=== PATIENT | female | born 1990 | race Two or more races ===

== ENCOUNTER 2017-10-16 09:16 | Emergency (ER) | payer SELFPAY ==
--- NOTE | 2017-10-16 09:47 | EDM.PDOC ---
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 The patient 's mother does not speak Cymro at all.) - History of Present Illness INITIAL COMMENTS - FREE TEXT/NARRATIVE: The patient states that her last menstrual period began 09/09/2017 or 09/10/2017, a normal period for her. She is sexually active, and does not use any form of control. She states that a home test was positive 4 days ago, 10/12/2017. She is Ab1. She states that she developed pelvic cramps and significant vaginal bleeding, including passing clots, yesterday. Her symptoms stopped, although resumed again today, but with only minimal bleeding and much less severe cramping. The patient denies having dysuria or urinary frequency. The patient does not have a PCP, but her Crew Dispatcher is Dr. Ferguson. For reasons unclear, the patient did not contact Dr. Ferguson. Lower Pelvic Pain Score (Numeric/FACES): 3 - Related Data Allergies Allergy/AdvReac Type Severity Reaction Status Date / Time No Known Allergies Allergy Verified 10/16/17 09:28 Home Meds: Home Meds . [No Known Home Meds] 10/16/17 [History] Past Medical History - Past Surgical History GI Surgical History: Reports: Appendectomy, Cholecystectomy Social & Family History - Tobacco Use Smoking Status *Q: Never Smoker - Alcohol Use Alcohol Use History: Yes Alcohol Use Frequency: Rarely - Recreational Drug Use Recreational Drug Use: No - Living Situation & Occupation Living situation: Reports: , with Spouse, with Family (2 kids) Occupation: Unemployed ED ROS GENERAL - Review of Systems Review Of Systems: ROS reveals no pertinent complaints other than HPI. ED EXAM - Physical Exam Exam: See Below Exam Limited By: No Limitations General Appearance: Alert, WD/WN, No Apparent Distress Eye Exam: Bilateral Eye: Normal Inspection Ears: Normal External Exam, Hearing Grossly Normal Nose: Normal Inspection, No Blood Throat/Mouth: Normal Inspection, Normal Lips, Normal Voice, No Airway Compromise Head: Atraumatic, Normocephalic Neck: Normal Inspection, Full Range of Motion Respiratory/Chest: No Respiratory Distress, Lungs Clear, Normal Breath Sounds, No Accessory Muscle Use Cardiovascular: Normal Peripheral Pulses, Regular Rate, Rhythm, No Edema, No Gallop, No JVD, No Murmur, No Rub GI/Abdominal Exam: Normal Bowel Sounds, Soft, Non-Tender, No Organomegaly, No Distention, No Abnormal Bruit, No Mass, Other (Obese) Rectal Exam: Deferred Back Exam: Normal Inspection, Full Range of Motion. No: CVA Tenderness (L), CVA Tenderness (R) Extremities: Normal Inspection, Normal Range of Motion, No Pedal Edema, Normal Capillary Refill Neurological: Alert, Oriented, Normal Cognition, No Motor/Sensory Deficits Psychiatric: Normal Affect Skin Exam: Warm, Dry, Intact, Normal Color, No Rash Course - Vital Signs Last Recorded V/S: Last Vital Signs Temp 36.7 C 10/16/17 09:25 Pulse 87 10/16/17 09:25 Resp 18 10/16/17 09:25 BP 114/74 10/16/17 09:25 Pulse Ox 100 10/16/17 09:25 - Orders/Labs/Meds Labs: Laboratory Tests 10/16/17 Range/Units 09:52 HCG, Quant 48.0 mIU/mL - Re-Assessments/Exams Free Text/Narrative Re-Assessment/Exam: 10/16/17 09:43 By history, the patient has had a miscarriage. As she has minimal bleeding at this time, a D&C is not indicated. For today's purposes, I will order a quantitative hCG. By dates, the patient would be 5 weeks 2 or 3 days gestation today. If the quantitative level is within normal levels for dates, the patient can follow-up with Dr. Ferguson for repeat quantitative hCG. If it is exceedingly low, that will confirm that the patient has had a miscarriage. As the patient would be 5 weeks 2 or 3 days gestation by dates, she is far too early for heart tones. Case discussed with Dr. Ferguson at 09:41. She agrees with my approach of obtaining a quantitative hCG, and no other tests today. She would like the patient to follow-up this coming 10/21/2017. 10/16/17 10:32 The quantitative hCG has returned very low at 48. The hCG should be greater than 50 after 1 week of gestation, and at 5 weeks 2 or 3 days, should be between 1000 and 100,000. This confirms the patient has suffered a miscarriage. I will still have her follow-up with Dr. Ferguson this coming Friday, 2017. Departure - Departure Time of Disposition: 10:38 Disposition: Home, Self-Care 01 Condition: Good Clinical Impression: Spontaneous - Discharge Information Referrals: PCP,None [Primary Care Provider] - Marci Ferguson MD [Physician] - Forms: ED Department Discharge Additional Instructions: You were seen in the emergency room after developing pelvic cramps and vaginal bleeding yesterday, with a positive home test on 10/12/2017. Workup in the ER included a quantitative hCG (a measurement of your hormone), which returned low at 48. Given your gestational age, that hormone level should have been between 1000 and 100,000. This indicates that you have had a miscarriage. Your case was discussed with Dr. Ferguson. She would like you to follow-up in her office this coming 10/21/2017. You will need to make an appointment to see her. If any other problems, please do not hesitate to return to the ER.
[2017-10-16 10:57] VITALS: BP 115/70
== END 2017-10-16 10:50 | disposition home or self-care (01) ==
LOC: JD.ED 09:16
DX: O03.9 Complete or unspecified spontaneous abortion without complication (principal)
CPT/HCPCS: 36415; 84702; 99283; 99284

== ENCOUNTER 2019-04-27 19:28 | Emergency (ER) | payer OTHER ==
[2019-04-27 19:40] VITALS: BP 121/68; PULSE 121
--- NOTE | 2019-04-27 20:12 | EDM.PDOC ---
ED HPI GENERAL MEDICAL PROBLEM - General Chief Complaint: Respiratory Problem Stated Complaint: 28 WKS PG/SOB Time Seen by Provider: 04/27/19 19:37 Source of Information: Reports: Patient, Family (Mother) History Limitations: Reports: No Limitations - History of Present Illness INITIAL COMMENTS - FREE TEXT/NARRATIVE: Mrs. Carpio is a very pleasant 29-year-old woman with no chronic medical problems , who states that she is approximately 28 weeks gestation. On closer questioning , the patient is Ab2, at 29 weeks 1 day gestation as determined by an obstetric ultrasound on 03/29/2019. Her NEYMAR is 07/12/2019. Her LMP was 10/07/2018. She now presents to the ED stating that she developed shortness of breath and tachycardia around 19:00 this evening. Her shortness of breath resolved after around 30 minutes, and her tachycardia is improving, but is still present. She denies recent chest pain. She states that she has had a sore throat and a cough today. She feels tired. She denies recent fever, nausea, vomiting, constipation , diarrhea, or urinary symptoms. The patient denies having recent edema or swelling of either lower extremity. The patient states that she had similar symptoms sometime in March. She saw Dr. Taylor in lieu of her usual Staging Technician. An ECG was performed, and, according to the patient, was normal. The patient does not have a PCP. Her Staging Technician is Dr. Jonathan Katz. She did receive an influenza vaccine this season. 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: , Spontaneous (x 2) : 5 Para: 2 - Past Surgical History GI Surgical History: Reports: Appendectomy, Cholecystectomy (2010) Female Surgical History: Reports: Section (x 1) Social & Family History - Family History Family Medical History: Noncontributory - Tobacco Use Smoking Status *Q: Never Smoker - Caffeine Use Caffeine Use: Reports: Coffee, Soda - Alcohol Use Alcohol Use History: Yes Alcohol Use Frequency: Rarely - Recreational Drug Use Recreational Drug Use: No - Living Situation & Occupation Living situation: Reports: , with Spouse, with Family (2 kids) Occupation: Unemployed ED ROS GENERAL - Review of Systems Review Of Systems: Comprehensive ROS is negative, except as noted in HPI. ED EXAM, GENERAL - Physical Exam Exam: See Below Exam Limited By: No Limitations General Appearance: Alert, WD/WN, No Apparent Distress Eye Exam: Bilateral Eye: EOMI, Normal Inspection Ears: Normal External Exam, Normal Canal, Hearing Grossly Normal, Normal TMs Nose: Normal Inspection, Normal Mucosa, No Blood Throat/Mouth: Normal Inspection, Normal Lips, Normal Teeth, Normal Gums, Normal Oropharynx, Normal Voice, No Airway Compromise Head: Atraumatic, Normocephalic Neck: Normal Inspection, Supple, Non-Tender, Full Range of Motion. No: Lymphadenopathy (L), Lymphadenopathy (R) Respiratory/Chest: No Respiratory Distress, Lungs Clear, Normal Breath Sounds, No Accessory Muscle Use. No: Decreased Breath Sounds, Crackles, Rhonchi, Wheezing, Stridor, Prolonged Expiration Cardiovascular: Normal Peripheral Pulses, No Edema, No Gallop, No JVD, No Murmur , No Rub, Tachycardia (regular) Peripheral Pulses: 4+: Radial (L), Radial (R) GI/Abdominal: Normal Bowel Sounds, Soft, Non-Tender, No Organomegaly, No Distention, No Abnormal Bruit, Other (Gravid uterus consistent with dates) (Female) Exam: Deferred Rectal (Female) Exam: Deferred Back Exam: Normal Inspection, Full Range of Motion, NT Extremities: Normal Inspection, Normal Range of Motion, No Pedal Edema, Normal Capillary Refill Neurological: Alert, Oriented, Normal Cognition, No Motor/Sensory Deficits Psychiatric: Normal Affect Skin Exam: Warm, Dry, Intact, Normal Color, No Rash Course - Vital Signs Last Recorded V/S: Last Vital Signs Temp 37.1 C 04/27/19 19:36 Pulse 121 H 04/27/19 19:36 Resp 18 04/27/19 19:36 BP 121/68 04/27/19 19:36 Pulse Ox 97 04/27/19 19:36 - Orders/Labs/Meds Orders: Active Orders 24 hr Category Date Time Status Ang Chest [CT] Stat Exams 04/27/19 21:28 Taken Chest 2V [CR] Stat Exams 04/27/19 20:12 Taken Lung Vent Perfusion [NM] Stat Exams 04/27/19 21:12 Stop Req CULTURE STREP A CONFIRMATION [RM] Stat Lab 04/27/19 20:16 Results STREP SCRN A RAPID W CULT CONF [RM] Stat Lab 04/27/19 20:16 Results Sodium Chloride 0.9% [Normal Saline] 1,000 ml Med 04/27/19 22:00 Active IV ASDIRECTED Medication Orders Sodium Chloride (Normal Saline) 1,000 mls @ 150 mls/hr IV ASDIRECTED ALEXANDRA Last Admin: 04/27/19 22:17 Dose: 150 mls/hr Meds: Medications Generic Name Dose Route Start Last Admin Trade Name Freq PRN Reason Stop Dose Admin Sodium Chloride 1,000 mls @ 150 mls/hr 04/27/19 22:00 04/27/19 22:17 Normal Saline IV 150 mls/hr ASDIRECTED ALEXANDRA Administration - Re-Assessments/Exams Free Text/Narrative Re-Assessment/Exam: 04/27/19 20:07 With a history of shortness of breath and tachycardia, a diagnosis of pulmonary embolus has to be entertained. The risk of a DVT and pulmonary embolus increases with , as does, unfortunately, the D-dimer. Current guidelines, therefore do not recommend checking a D-dimer, as it will invariably be elevated. In the absence of lower extremity edema, such as in this case, current guidelines recommend checking a chest x-ray, and if normal, obtaining a V/Q scan. If the x-ray is abnormal, a CT angiogram of the chest is indicated. Since the patient is also complaining of a sore throat, I will swab for a rapid strep test. 04/27/19 20:19 The heart tones are 150 bpm. 04/27/19 20:53 The rapid strep test has returned negative. Notified by Reny PAN that the patient wants to "think about it" with respect to the chest x-ray. I explained to Reny, as I had with the patient, that the purpose of the chest x-ray is to determine if the diagnostic test to evaluate for a pulmonary embolus should be a V/Q scan or a CT angiogram. If the patient does not want a chest x-ray, then I cannot determine which is the best diagnostic test for her. If the patient doesn't want either diagnostic test, then she does not need to undergo the chest x-ray. 04/27/19 21:15 2-view chest radiograph reviewed. Poor inspiratory effort. The cardiac silhouette is within normal limits. No pulmonary vascular congestion. No pleural effusions. No focal infiltrate. No pneumothorax. Formal read per the Radiologist pending. As above, I have ordered a V/Q scan. 04/27/19 21:21 Notified that a V/Q scan is not available at this facility at night. I have no choice but to offer the patient a CT angiogram of her chest to evaluate for a PE. 04/27/19 23:21 CT angiogram of the chest is read by [facility] as "No acute pulmonary embolus." The patient can be safely discharged home. Departure - Departure Time of Disposition: 23:23 Disposition: Home, Self-Care 01 Condition: Good Clinical Impression: Tachycardia, Dyspnea - Discharge Information *PRESCRIPTION DRUG MONITORING PROGRAM REVIEWED*: Not Applicable *COPY OF PRESCRIPTION DRUG MONITORING REPORT IN PATIENT JAM: Not Applicable Referrals: Jonathan Katz MD [Primary Care Provider] - Forms: ED Department Discharge Additional Instructions: You were seen in the emergency room after developing shortness of breath and an elevated heart rate, along with a sore throat and cough. Workup in the ER included a rapid strep test, a chest x-ray, and a CT angiogram of your chest. Your entire workup was unremarkable. You do not have strep throat. You do not have pneumonia. You do not have a pulmonary embolus (blood clot in your lungs). You should stay adequately hydrated over the next week. You may continue to take your vitamin and iron. Follow-up with your Staging Technician, Dr. Jonathan Katz, at your next scheduled appointment. If any other problems, please do not hesitate to return to the ER. Sepsis Event Note - Evaluation Sepsis Screening Result: No Definite Risk - Focused Exam Vital Signs: Vital Signs Temp Pulse Resp BP Pulse Ox 04/27/19 19:36 37.1 C 121 H 18 121/68 97 Date Exam was Performed: 04/27/19 Time Exam was Performed: 23:21 - My Orders Last 24 Hours: My Active Orders 04/27/19 20:12 Chest 2V [CR] Stat 04/27/19 20:16 CULTURE STREP A CONFIRMATION [RM] Stat STREP SCRN A RAPID W CULT CONF [RM] Stat 12/17/19 21:12 Lung Vent Perfusion [NM] Stat 04/27/19 21:28 Ang Chest [CT] Stat 04/27/19 22:00 Sodium Chloride 0.9% [Normal Saline] 1,000 ml IV ASDIRECTED - Assessment/Plan Last 24 Hours: My Active Orders 04/27/19 20:12 Chest 2V [CR] Stat 04/27/19 20:16 CULTURE STREP A CONFIRMATION [RM] Stat STREP SCRN A RAPID W CULT CONF [RM] Stat 04/27/19 21:12 Lung Vent Perfusion [NM] Stat 04/27/19 21:28 Ang Chest [CT] Stat 04/27/19 22:00 Sodium Chloride 0.9% [Normal Saline] 1,000 ml IV ASDIRECTED
[2019-04-27] MEDS ORDERED: Sodium Chloride 0.9% 1,000 ML IV SCH (22:00)
--- NOTE | 2019-04-28 06:55 | CT ---
CT chest Technique: Multiple axial sections through the chest were obtained. Study performed as a pulmonary angiogram protocol. Intravenous contrast was therefore utilized. Comparison: No previous chest CT, previous chest x-ray performed earlier on the same day (8:59 PM). Findings: Pulmonary arteries are not optimally opacified. No discrete filling defects within the main or segmental branches are seen. Smaller subsegmental pulmonary emboli could be missed. Aorta shows no aneurysm. No mediastinal adenopathy is seen. No axillary adenopathy is noted. No pericardial thickening is seen. Visualized upper abdominal structures show no discrete abnormality. Lungs show no acute parenchymal change. No pleural effusions are seen. No acute bony abnormality is identified. Impression: 1. Less than optimal opacified pulmonary arteries. No evidence of pulmonary embolism within the main or segmental branches. Smaller subsegmental pulmonary emboli could be missed. 2. No additional abnormality is identified on CT study of the chest. Diagnostic code #2 This report was dictated in [place] Standard Time I agree with preliminary report from [facility], finalized on 04/28/19, 12:19 AM Central Time
--- NOTE | 2019-04-28 06:59 | CR ---
Chest: Two views of the chest were obtained. Comparison: No prior chest x-ray. Heart size and mediastinum are normal. Lungs are clear. Bony structures are grossly intact. Impression: 1. Nothing acute is seen on two-view chest x-ray. Diagnostic code #1 This report was dictated in [place] Standard Time
== END 2019-04-27 23:39 | disposition home or self-care (01) ==
LOC: JD.ED 19:28
DX: O99.89 Other specified diseases and conditions complicating pregnancy, childbirth and the puerperium (principal); R00.0 Tachycardia, unspecified; R06.02 Shortness of breath; Z3A.28 28 weeks gestation of pregnancy
CPT/HCPCS: 71046; 71275; 87081; 87430; 96360; 99285; J7030; 99283

== ENCOUNTER 2019-07-08 08:38 | Inpatient (IN) | payer SELFPAY ==
[2019-07-08] MEDS ORDERED: Sodium Chloride 0.9% 10 ML Syringe FLUSH PRN (09:27)
[2019-07-08] MEDS ORDERED: Ondansetron 4 MG/2 ML SDV IVPUSH PRN ×2 (09:27→12:17)
[2019-07-08] MEDS ORDERED: Oxytocin/Lactated Ringers 10 UNIT/1,000 ML BAG IV SCH ×2 (09:30→14:30)
[2019-07-08] MEDS ORDERED: Lactated Ringers 1,000 ML IV SCH (09:30)
[2019-07-08] MEDS ORDERED: ePHEDrine 50 MG/ML SDV IVPUSH PRN (12:17)
[2019-07-08] MEDS ORDERED: fentaNYL 100 MCG/2 ML SDV EPIDUR PRN (12:17)
--- NOTE | 2019-07-08 12:19 | PCM.PREANE ---
Preanesthetic Assessment - Anesthesia/Transfusion/Family Hx Anesthesia History: Prior Anesthesia Without Reaction Family History of Anesthesia Reaction: No Transfusion History: No Prior Transfusion(s) Intubation History: Unknown - Review of Systems General: No Symptoms Pulmonary: No Symptoms Cardiovascular: Palpitations (with ) Gastrointestinal: No Symptoms (GERD with ) Neurological: No Symptoms Other: Reports: None - Physical Assessment NPO Status Date: 07/08/19 NPO Status Time: 11:00 Vital Signs: Last Vital Signs Temp 36.7 C 07/08/19 08:47 Pulse 95 07/08/19 08:47 Resp 16 07/08/19 08:47 BP 114/83 07/08/19 08:47 Pulse Ox 98 07/08/19 08:47 Height: 1.68 m Weight: 95.708 kg ASA Class: 2 Mental Status: Alert & Oriented x3 Airway Class: Mallampati = 2 Dentition: Reports: Normal Dentition, Caries Thyro-Mental Finger Breadths: 3 Mouth Opening Finger Breadths: 3 ROM/Head Extension: Full Lungs: Clear to Auscultation, Normal Respiratory Effort Cardiovascular: Regular Rate, Regular Rhythm, No Murmurs - Lab Values: Laboratory Last Values WBC 9.63 K/mm3 (3.98-10.04) 07/08/19 09:53 RBC 4.51 M/mm3 (3.98-5.22) 07/08/19 09:53 Hgb 12.8 gm/dl (11.2-15.7) 07/08/19 09:53 Hct 38.5 % (34.1-44.9) 07/08/19 09:53 MCV 85.4 fl (79.4-94.8) D 07/08/19 09:53 MCH 28.4 pg (25.6-32.2) 07/08/19 09:53 MCHC 33.2 g/dl (32.2-35.5) 07/08/19 09:53 RDW Std Deviation 44.7 fL (36.4-46.3) 07/08/19 09:53 Plt Count 336 K/mm3 (182-369) 07/08/19 09:53 MPV 9.5 fl (9.4-12.3) 07/08/19 09:53 Neut % (Auto) 69.8 % (34.0-71.1) 07/08/19 09:53 Lymph % (Auto) 23.8 % (19.3-51.7) 07/08/19 09:53 [place] % (Auto) 5.0 % (4.7-12.5) 07/08/19 09:53 Eos % (Auto) 0.6 (0.7-5.8) L 07/08/19 09:53 Baso % (Auto) 0.2 % (0.1-1.2) 07/08/19 09:53 Neut # (Auto) 6.72 K/mm3 (1.56-6.13) H 07/08/19 09:53 Lymph # (Auto) 2.29 K/mm3 (1.18-3.74) 07/08/19 09:53 [place] # (Auto) 0.48 K/mm3 (0.24-0.36) H 07/08/19 09:53 Eos # (Auto) 0.06 K/mm3 (0.04-0.36) 07/08/19 09:53 Baso # (Auto) 0.02 K/mm3 (0.01-0.08) 07/08/19 09:53 Above labs reviewed and noted and within acceptable ranges to proceed with epidural if desired. 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: , 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 (x 2) - Past Surgical History GI Surgical History: Reports: Appendectomy, Cholecystectomy (2009) Female Surgical History: Reports: Section (x 1) - HOME MEDS Home Medications: Home Meds No122/Iron/Folic Acid [ Multi Tablet] 1 tab PO DAILY 04/27/19 [ History] - CURRENT (IN HOUSE) MEDS Current Meds: Current Medications Lactated Ringer's (Ringers, Lactated) 1,000 mls @ 100 mls/hr IV ASDIRECTED ALEXANDRA Oxytocin/Lactated Ringer's (Pitocin In Lr 10 Units/1,000 Ml) 10 unit in 1,000 mls @ 500 mls/hr IV .CONTINUOUS ALEXADNRA Ondansetron HCl (Zofran) 4 mg IVPUSH Q4H PRN PRN Reason: Nausea/Vomiting Sodium Chloride (Saline Flush) 10 ml FLUSH ASDIRECTED PRN PRN Reason: Keep Vein Open
[2019-07-08] MEDS ORDERED: Phenylephrine 1 MG in Sodium Chloride 0.9% 10 ML IV SCH (12:30)
[2019-07-08] MEDS ORDERED: Bupivacaine/fentaNYL/NS 100 ML Bag EPIDUR SCH (12:30)
--- NOTE | 2019-07-08 12:49 | PCM.LDHP ---
L&D History of Present Illness - General Date of Service: 07/08/19 Admit Problem/Dx: Patient Status Order with Admit Dx/Problem 07/08/19 09:28 Patient Status [ADT] Routine Admission Diagnosis/Problem Admission Diagnosis/Problem 07/08/19 12:40 Debora is a 29-year-old 4 para 2013 white female admitted in active labor on 07/08/2019 at 39-1/7 weeks gestational age with an NEYMAR of 07/14/2019. Source of Information: Patient History Limitations: Reports: No Limitations - History of Present Illness Introduction:: Debora is a 29-year-old 4 para 2013 white female admitted in active labor on 07/08/2019 at 39-1/7 weeks gestational age with an NEYMAR of 07/14/2019.She began in labor early on the a.m. of 07/08/2019. She is progressed from cervical dilation of 2+ centimeters 70% effaced with -3 station on 07/07/2019 to 4 cm dilation at the time of admission. He has been active. heart tones are reassuring. 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 Her first medical visit was on 12/21/2018 at which time ultrasound correlated with dates. She's been seen on a regular basis throughout the . Her menarche was at age 10. Cycles every 32 days. She is sexually active without any control to time conception. Her past obstetric history includes the followin. Female infant born 09/04/2010 at 38 weeks gestational age after 6 hours of labor. 7 lbs. 10 oz.-Primary section done for failure to progress. This was done in [place]. Baby's name is Hanna. 2. Spontaneous first trimester occurring 12/21/2013 3. Male born 08/15/2015 at 38 weeks gestational age after 12 hours of labor. Earth weight 7 lbs. 8 oz. This was a vaginal after section. Epidural was used for labor analgesia. Son's name is Nitesh. course was unremarkable. She was seen on a regular basis throughout the care. She had a weight gain from 205-209 pounds. Fundal height growth was appropriate to just a bit ahead of schedule. Vital signs remained stable throughout the course. Patient's immunizations including influenza vaccine on 02/18/2019. She received her T dap immunization on 04/22/2019. She is rubella immune. Laboratory testing as follows: Blood is O+ with negative and by screen. First hemoglobin is 14.1 g/dL. Platelets were 351,000. She is rubella immune. RPR is nonreactive. Hepatitis B surface antigen and HIV assays were both negative. A medium gonorrhea tests were both negative. TSH done on 2019 was 2.356 mU/L. Second trimester laboratory testing showed hemoglobin 11.5 g/dL at which time patient was started on ferrous sulfate 325 mg by mouth daily. Her platelets at that time were 369,000. One-hour glucose tolerance test was mildly increased at 134. Her three-hour glucose showed a fasting blood sugar of 86. A 1 hour glucose of 194. 2R glucose of 139. A 3 hour glucose of 77. This was consistent with not being a gestational diabetic. Group B strep screen done on 06/14/19 was negative. Allergies: None Medications: 1. vitamins 1 daily 2. Ferrous sulfate 325 mg by mouth daily. Past medical history: 1. Miscarriage 12/21/2013spontaneousfirst trimester 2. Vaginal after section 08/15/2014 Surgical history: 1. 1 for failure to progress 09/04/2009. 2. Appendectomy 2002 3. Cholecystectomy 2009. Family history: Mother is alive and well as is her father. 2 brothers are alive and well as is one sister. Maternal grandmother is alive and well. Maternal grandfather is alive but has suffered from a stroke. Paternal grandmother is alive and well as is her paternal grandfather. There is no family history of cancer, bleeding, blood clotting disorders, anesthesia or related asthma issues. Twins are present history father's side. Social history: Patient is . She is a juun-hp-qavo mom.. is [place]. She does not use any significant most alcohol, drugs or tobacco. Review of systems: In general patient has no complaints other than contractions consistent with early labor.. Skin: Negative Lungs: No infectious symptoms or shortness of breath Cardiovascular: No chest pain or exercise intolerance Breasts: Changes associated with . GI: Negative : Body habitus changes consistent with . Musculoskeletal: Negative Neurological: Negative In general the patient is well-developed, well-nourished, pleasant female of stated age in no acute distress. Vital signs on last evaluation clinic 07/07/2019 showed a blood pressure of 110/ 62 and a heart rate of 133. Her weight was 209.4 cm with pre- weight at 205 pounds. Height is 5 feet 6 inches. Pre-but regnancy body mass index is 36.3. Skin is warm dry without lesions. HEENT, neck and back within normal limits. Lungs are clear with good breath sounds in all lung mae. Cardiovascular exam shows regular and rhythm without murmurs. Abdomen is flat, soft, nontender without masses or organomegaly. Positive bowel sounds are noted. No inguinal lymphadenopathy or hernias are noted. Genital per speculum bimanual shows normal external genitalia, BUS, pubic hair pattern. There is normal support, secretions and estrogenization vagina. Uterus is small, anterior, freely mobile, without parametrial induration or adnexal abnormalities. Extremities and neurological exam are grossly within normal limits. - Related Data Allergies/Adverse Reactions: Allergies Allergy/AdvReac Type Severity Reaction Status Date / Time No Known Allergies Allergy Verified 04/27/19 19:40 Home Medications: Home Meds No122/Iron/Folic Acid [ Multi Tablet] 1 tab PO DAILY 04/27/19 [ History] Past Medical History - Past Health History Medical/Surgical History: Denies Medical/Surgical History LEGAL BILLING COORDINATOR History: Reports: , Spontaneous (x 2) - Past Surgical History GI Surgical History: Reports: Appendectomy, Cholecystectomy (2010) Female Surgical History: Reports: Section (x 1) Social & Family History - Family History Family Medical History: Noncontributory - Caffeine Use Caffeine Use: Reports: Coffee, Soda - Living Situation & Occupation Living situation: Reports: , with Spouse, with Family (2 kids) Occupation: Unemployed H&P Review of Systems - Review of Systems: Review Of Systems: See Below L&D Exam - Exam Exam: See Below - Vital Signs Vital Signs: Last Vital Signs Temp 36.7 C 07/08/19 08:47 Pulse 95 07/08/19 08:47 Resp 16 07/08/19 08:47 BP 114/83 07/08/19 08:47 Pulse Ox 98 07/08/19 08:47 Weight: 95.708 kg - Patient Data Lab Results Last 24 hrs: Laboratory Results - last 24 hr 07/08/19 Range/Units 09:53 WBC 9.63 (3.98-10.04) K/mm3 RBC 4.51 (3.98-5.22) M/mm3 Hgb 12.8 (11.2-15.7) gm/dl Hct 38.5 (34.1-44.9) % MCV 85.4 D (79.4-94.8) fl MCH 28.4 (25.6-32.2) pg MCHC 33.2 (32.2-35.5) g/dl RDW Std Deviation 44.7 (36.4-46.3) fL Plt Count 336 (182-369) K/mm3 MPV 9.5 (9.4-12.3) fl Neut % (Auto) 69.8 (34.0-71.1) % Lymph % (Auto) 23.8 (19.3-51.7) % Nobles % (Auto) 5.0 (4.7-12.5) % Eos % (Auto) 0.6 L (0.7-5.8) Baso % (Auto) 0.2 (0.1-1.2) % Neut # (Auto) 6.72 H (1.56-6.13) K/mm3 Lymph # (Auto) 2.29 (1.18-3.74) K/mm3 Nobles # (Auto) 0.48 H (0.24-0.36) K/mm3 Eos # (Auto) 0.06 (0.04-0.36) K/mm3 Baso # (Auto) 0.02 (0.01-0.08) K/mm3 Result Diagrams: 07/08/19 09:53 Problem List Initiated/Reviewed/Updated: Yes Orders Last 24hrs: Active Orders 24 hr Category Date Time Status Patient Status [ADT] Routine ADT 07/08/19 09:28 Active Activity as Tolerated [RC] PFP Care 07/08/19 09:27 Active Communication Order [RC] ASDIRECTED Care 07/08/19 09:27 Active Heart Tones [RC] ASDIRECTED Care 07/08/19 09:28 Active Non Stress Test [RC] PER UNIT ROUTINE Care 07/08/19 08:47 Active Notify Provider [RC] ASDIRECTED Care 07/08/19 12:17 Active Notify Provider [RC] PFP Care 07/08/19 09:27 Active Notify Provider [RC] PRN Care 07/08/19 09:27 Active Oxygen Therapy [RC] ASDIRECTED Care 07/08/19 12:17 Active Peripheral IV Care [RC] . DIRECTED Care 07/08/19 09:28 Active Pulse Oximetry [RC] ASDIRECTED Care 07/08/19 12:17 Active Vital Signs [RC] PER UNIT ROUTINE Care 07/08/19 08:47 Active Vital Signs [RC] PER UNIT ROUTINE Care 07/08/19 09:27 Active RAPID PLASMA REAGIN,RPR [CHEM] Routine Lab 07/08/19 09:53 Received Bupivacaine/fentaNYL/NS [fentaNYL/Bupivacaine/NS 2 MCG- Med 07/08/19 12:30 Active 0.125% 100 ML] 100 ml EPIDUR ASDIRECTED Lactated Ringers [Ringers, Lactated] 1,000 ml Med 07/08/19 09:30 Active IV ASDIRECTED Ondansetron [Zofran] Med 07/08/19 12:17 Active 4 mg IVPUSH ONETIME PRN Ondansetron [Zofran] Med 07/08/19 09:27 Active 4 mg IVPUSH Q4H PRN Oxytocin/Lactated Ringers [Pitocin in LR 10 Units/1,000 Med 07/08/19 09:30 Active ML] 10 unit in 1,000 ml IV .CONTINUOUS Phenylephrine [Hosea-Synephrine] 1 mg Med 07/08/19 12:30 Active Sodium Chloride 0.9% [Normal Saline] 10 ml IV TITRATE Sodium Chloride 0.9% [Saline Flush] Med 07/08/19 09:27 Active 10 ml FLUSH ASDIRECTED PRN ePHEDrine [ePHEDrine sulfate] Med 07/08/19 12:17 Active 5 mg IVPUSH ASDIRECTED PRN fentaNYL [Sublimaze] Med 07/08/19 12:17 Active 100 mcg EPIDUR Q3H PRN Electronic Heart Tones Ext w TOCO [WOMSER] Oth 07/08/19 09:27 Ordered Routine Electronic Heart Tones Internal [WOMSER] Per Unit Oth 07/08/19 09:27 Ordered Routine Peripheral IV Insertion Adult [OM.PC] Routine Oth 07/08/19 09:27 Ordered Resuscitation Status Routine Resus Stat 07/08/19 08:47 Ordered Medication Orders Ephedrine Sulfate (Ephedrine Sulfate) 5 mg IVPUSH ASDIRECTED PRN PRN Reason: Hypotension Fentanyl (Sublimaze) 100 mcg EPIDUR Q3H PRN PRN Reason: Pain Fentanyl/Bupivacaine HCl (Fentanyl/Bupivacaine/Ns 2 Mcg-0.125% 100 Ml) 100 ml EPIDUR ASDIRECTED ALEXANDRA Lactated Ringer's (Ringers, Lactated) 1,000 mls @ 100 mls/hr IV ASDIRECTED ALEXANDRA Oxytocin/Lactated Ringer's (Pitocin In Lr 10 Units/1,000 Ml) 10 unit in 1,000 mls @ 500 mls/hr IV .CONTINUOUS ALEXANDRA Phenylephrine HCl 1 mg/ Sodium (Chloride) 10.1 mls @ 1 mls/sec IV TITRATE ALEXANDRA; Protocol Ondansetron HCl (Zofran) 4 mg IVPUSH Q4H PRN PRN Reason: Nausea/Vomiting Ondansetron HCl (Zofran) 4 mg IVPUSH ONETIME PRN PRN Reason: Nausea/Vomiting Sodium Chloride (Saline Flush) 10 ml FLUSH ASDIRECTED PRN PRN Reason: Keep Vein Open Assessment/Plan Comment:: 1. 39-1/7 week intrauterine , active labor, progressive cervical dilation. 2. Patient interested in epidural at some point in the labor pattern 3. Rubella titer shows immunity. Patient received her T dap and her flu immunizations. 4. Group B strep screen negative 5. Patient plans to breast-feed 6. History of sectionpatient has successfully . 7. Abnormal 1 hour GTT but normal three-hour gtt. Plan: 1. Anticipate normal spontaneous vaginal delivery after a trial of labor after section for a vaginal after section 2. We'll do ration is for emergent section if it is necessary. These include labs, consent, consent for trial labor after section for vaginal after section, continuous monitoring, informing anesthesia and surgery that patient is present in labor and delivery. 3. Epidural when necessary 4. Support breast-feeding decision
--- NOTE | 2019-07-08 20:17 | PCM.SN ---
- Free Text/Narrative Note: Debora is a 29-year-old 4 para 2012 white female admitted in active labor on 07/08/2019 at 39-1/7 weeks gestational age with an NEYMAR of 07/14/2019.She began in labor early on the a.m. of 07/08/2019. She is progressed from cervical dilation of 2+ centimeters 70% effaced with -3 station on 07/07/2019 to 4 cm dilation at the time of admission. She progressed to complete cervical dilation by approximately 1945 hrs. She pushed for approximately 3 contractions and at 1955 hrs. on 07/08/2019 she delivered a viable, roblero, male with Apgars of 8 and 9, weight of 8 pounds 3.6 ounces (3730 g), length of 21.0 inches in a direct occiput anterior position. Baby was placed on mom's abdomen and nose mouth were bulb suctioned and the baby was dried. Pitocin was increased to 500 mL per hour to facilitate increased uterine tone and decrease likelihood of bleeding. Despite this patient had approximately 300-400 mL of blood loss and IM Methergine 0.2 mg was given. With this uterus became very firm and bleeding was minimal. Perineal or vaginal lacerations and no suturing was required. Placenta delivered in a Easley presentation, appeared intact and complete and was discarded per patient desire. The umbilical cord had 3 blood vessels. Cord blood was obtained. Patient plans to breast-feed. Condition: Good
[2019-07-08] MEDS ORDERED: Benzocaine/Menthol 20%-0.5% Spray 56 GM Canister TOP PRN (20:19)
[2019-07-08] MEDS ORDERED: Methylergonovine 0.2 MG/1 ML Amp IM PRN (20:19)
[2019-07-08] MEDS ORDERED: Docusate Sodium 100 MG Cap PO PRN (20:19)
[2019-07-08] MEDS ORDERED: Witch Hazel Medicated Pads 40/Jar TOP PRN (20:19)
[2019-07-08] MEDS ORDERED: Ibuprofen 600 MG Tab PO PRN (20:19)
[2019-07-08] MEDS ORDERED: Acetaminophen 325 MG Tab PO PRN (20:19)
--- NOTE | 2019-07-09 07:04 | PCM.SN ---
- Free Text/Narrative Note: note: Patient is doing well in the period. Minimal lochia, voiding well, ambulated without problems. Nursing without concerns. Patient is afebrile, vital signs are stable Abdomen is flat, soft, uterus is below the umbilicus and is firm and nontender. Legs are nontender. Assessment: recovery going well. Plan: Routine care. Patient be discharged home within the next 24-48 hours.
[2019-07-09] MEDS: Prenatal Multivitamin with Calcium/Folic Acid/Iron Tab PO SCH (22:06)
[2019-07-10] MEDS: Prenatal Multivitamin with Calcium/Folic Acid/Iron Tab PO SCH (09:04)
[2019-07-10 10:04] VITALS: BP 105/62; PULSE 84
--- NOTE | 2019-07-10 10:49 | PCM.SN ---
- Free Text/Narrative Note: Post Progress Note PPD # 2 Subjective: Doing well overall. Ambulating without difficulty. Lochia minimal. Voiding without difficulty. Tolerating regular diet without nausea or vomiting. Pain controlled with oral medications. Breast and bottlefeeding with minimal difficulty. Objective: Vitals: Vital Signs - 24 hr 07/09/19 07/09/19 07/10/19 16:05 20:38 03:22 Temperature 36.5 C 36.6 C 36.7 C Pulse, 88 92 70 Peripheral Respiratory 16 16 16 Rate Blood Pressure 103/64 102/61 102/61 O2 Sat by Pulse 99 99 97 Oximetry 07/10/19 08:59 Temperature 36.5 C Pulse, 84 Peripheral Respiratory 15 Rate Blood Pressure 105/62 O2 Sat by Pulse 97 Oximetry Physical Exam General: Alert and oriented, no acute distress Lungs: Clear to auscultation bilaterally Heart: Regular rate and rhythm Abdomen: Soft, minimal appropriate tenderness, non-distended, fundus midline, nontender, and at the umbilicus Extremities: No edema ASSESSMENT: 29-year-old female -0-1-3 s/p vaginal delivery after section PPD # 2, complicated by history of section and successful PLAN: Doing well Breast and bottlefeeding with minimal difficulty. Assist as needed Lochia minimal. Continue to monitor for appropriate lochia. Continue routine care Discharge home today Moises Taylor MD 10:48 AM 07/10/2019
--- NOTE | 2019-07-10 10:53 | PCM.DCSUM1 ---
Discharge Summary - Hospital Course Free Text/Narrative:: Debora is a 29-year-old 4 para 2013 white female admitted in active labor on 07/08/2019 at 39-1/7 weeks gestational age with an NEYMAR of 07/14/2019.She began in labor early on the a.m. of 07/08/2019. She is progressed from cervical dilation of 2+ centimeters 70% effaced with -3 station on 07/07/2019 to 4 cm dilation at the time of admission. She progressed to complete cervical dilation by approximately 1945 hrs. She pushed for approximately 3 contractions and at 1955 hrs. on 07/08/2019 she delivered a viable, roblero, male infant with Apgars of 8 and 9, weight of 8 pounds 3.6 ounces (3730 g), length of 21.0 inches in a direct occiput anterior position. Baby was placed on mom's abdomen and nose mouth were bulb suctioned and the baby was dried. Pitocin was increased to 500 mL per hour to facilitate increased uterine tone and decrease likelihood of bleeding. Despite this patient had approximately 300-400 mL of blood loss and IM Methergine 0.2 mg was given. With this uterus became very firm and bleeding was minimal. Perineal or vaginal lacerations and no suturing was required. Placenta delivered in a Easley presentation, appeared intact and complete and was discarded per patient desire. The umbilical cord had 3 blood vessels. Cord blood was obtained. Patient plans to breast-feed. Condition: Good HPI Initial Comments: Debora is a 29-year-old 4 para 2012 white female admitted in active labor on 07/08/2019 at 39-1/7 weeks gestational age with an NEYMAR of 07/14/2019.She began in labor early on the a.m. of 07/08/2019. She is progressed from cervical dilation of 2+ centimeters 70% effaced with -3 station on 07/07/2019 to 4 cm dilation at the time of admission. She progressed to complete cervical dilation by approximately 1945 hrs. She pushed for approximately 3 contractions and at 1955 hrs. on 07/08/2019 she delivered a viable, roblero, male with Apgars of 8 and 9, weight of 8 pounds 3.6 ounces (3730 g), length of 21.0 inches in a direct occiput anterior position. Baby was placed on mom's abdomen and nose mouth were bulb suctioned and the baby was dried. Pitocin was increased to 500 mL per hour to facilitate increased uterine tone and decrease likelihood of bleeding. Despite this patient had approximately 300-400 mL of blood loss and IM Methergine 0.2 mg was given. With this uterus became very firm and bleeding was minimal. Perineal or vaginal lacerations and no suturing was required. Placenta delivered in a Easley presentation, appeared intact and complete and was discarded per patient desire. The umbilical cord had 3 blood vessels. Cord blood was obtained. Patient plans to breast-feed. Condition: Good Brief History: Debora is a 29-year-old 4 para 2013 white female admitted in active labor on 07/08/2019 at 39-1/7 weeks gestational age with an NEYMAR of 07/14/2019.She began in labor early on the a.m. of 07/08/2019. She is progressed from cervical dilation of 2+ centimeters 70% effaced with -3 station on 07/07/2019 to 4 cm dilation at the time of admission. She progressed to complete cervical dilation by approximately 1945 hrs. She pushed for approximately 3 contractions and at 1955 hrs. on 07/08/2019 she delivered a viable, roblero, male infant with Apgars of 8 and 9, weight of 8 pounds 3.6 ounces (3730 g), length of 21.0 inches in a direct occiput anterior position. Baby was placed on mom's abdomen and nose mouth were bulb suctioned and the baby was dried. Pitocin was increased to 500 mL per hour to facilitate increased uterine tone and decrease likelihood of bleeding. Despite this patient had approximately 300-400 mL of blood loss and IM Methergine 0.2 mg was given. With this uterus became very firm and bleeding was minimal. Perineal or vaginal lacerations and no suturing was required. Placenta delivered in a Easley presentation, appeared intact and complete and was discarded per patient desire. The umbilical cord had 3 blood vessels. Cord blood was obtained. Patient plans to breast-feed. Condition: Good Diagnosis: Stroke: No - Discharge Data Discharge Date: 07/10/19 Discharge Disposition: Home, Self-Care 01 Condition: Good - Referral to Home Health Primary Care Physician: Jonathan Katz MD - Discharge Diagnosis/Problem(s) (1) 39 weeks gestation of SNOMED Code(s): 73012992 ICD Code: Z3A.39 - 39 WEEKS GESTATION OF Status: Acute Current Visit: Yes (2) Vaginal delivery SNOMED Code(s): 586450905 ICD Code: O80 - ENCOUNTER FOR FULL-TERM UNCOMPLICATED DELIVERY Status: Acute Current Visit: Yes (3) Vaginal delivery following previous section, delivered SNOMED Code(s): 161437889 ICD Code: O34.219 - MATERNAL CARE FOR UNSP TYPE SCAR FROM PREVIOUS DEL Status: Acute Current Visit: Yes (4) History of section SNOMED Code(s): 276385798 ICD Code: Z98.891 - HISTORY OF UTERINE SCAR FROM PREVIOUS SURGERY Status: Acute Current Visit: Yes (5) History of delivery, currently SNOMED Code(s): 352022147, 798324641 ICD Code: O34.219 - MATERNAL CARE FOR UNSP TYPE SCAR FROM PREVIOUS DEL Status: Acute Current Visit: Yes - Patient Summary/Data Complications: None Consults: None Hospital Course: Debora Casillas was admitted for active labor. On admission her cervix was dilated to 2 cm and changed to 4 cm. She was GBS negative. She was given pitocin for augmentation. She had artificial rupture of membranes with clear fluid. She progressed to complete and began pushing. On 07/08/2019 she had an uncomplicated vaginal delivery after section of a live male infant at 19:55. Apgars of 8 and 9. Weight of 3730 g (8 pounds 3.6 ounces). Her course was uneventful. Her pain was well controlled and she had minimal lochia. She was ambulating, tolerating a regular diet and voiding normally. She was breast and bottlefeeding with minimal difficulty. She was afebrile and her hematocrit was 38.5 on admission. She desired to be discharged home on the morning of PPD #2. Her blood type is O+. - Patient Instructions Diet: Regular Diet as Tolerated Activity: Apply Ice, As Tolerated Activity, Other: Nothing in the vagina for 6 weeks Driving: May Drive Today Showering/Bathing: May Shower Notify Provider of: Fever, Increased Pain, Swelling and Redness, Drainage, Nausea and/or Vomiting Other/Special Instructions: Please contact your physician's office if you have heavy vaginal bleeding enough to soak a pad in less than an hour for several hours. Monitor for any signs of an infection in the breasts with severe pain or redness of the breast. - Discharge Plan *PRESCRIPTION DRUG MONITORING PROGRAM REVIEWED*: Not Applicable *COPY OF PRESCRIPTION DRUG MONITORING REPORT IN PATIENT JAM: Not Applicable Home Medications: Home Meds No122/Iron/Folic Acid [ Multi Tablet] 1 tab PO DAILY 04/27/19 [ History] Acetaminophen [Tylenol] 650 mg PO Q6H PRN tablet 07/10/19 [Rx] Benzocaine/Menthol [Dermoplast Pain Relief Alpine] 1 spray TOP ASDIRECTED PRN canister 07/10/19 [Rx] Docusate Sodium [Colace] 100 mg PO BID PRN cap 07/10/19 [Rx] Ibuprofen [Motrin] 600 mg PO Q6H PRN tablet 07/10/19 [Rx] miki Catrachito [Tucks] 1 pad TOP ASDIRECTED PRN pad 07/10/19 [Rx] Patient Handouts: Care After Vaginal Delivery Referrals: Jonathan Katz MD [Primary Care Provider] - (Follow-up in 2 to 3 weeks for routine care or earlier as needed.) - Discharge Summary/Plan Comment DC Time >30 min.: No - Patient Data Vitals - Most Recent: Last Vital Signs Temp 36.5 C 07/10/19 08:59 Pulse 84 07/10/19 08:59 Resp 15 07/10/19 08:59 BP 105/62 07/10/19 08:59 Pulse Ox 97 07/10/19 08:59 Weight - Most Recent: 95.708 kg Med Orders - Current: Current Medications Acetaminophen (Tylenol) 650 mg PO Q4H PRN PRN Reason: mild pain or fever Benzocaine/Menthol (Dermoplast Pain Relief Alpine) 0 gm TOP ASDIRECTED PRN PRN Reason: Perineal Comfort Measure Docusate Sodium (Colace) 100 mg PO BID PRN PRN Reason: Constipation Last Admin: 07/10/19 09:04 Dose: 100 mg Ibuprofen (Motrin) 600 mg PO Q4H PRN PRN Reason: Mild pain or fever Last Admin: 07/08/19 20:31 Dose: 600 mg Methylergonovine Maleate (Methergine) 0.2 mg IM ONETIME PRN PRN Reason: Excessive Vaginal Bleeding Last Admin: 07/08/19 20:10 Dose: 0.2 mg Prenat Multivit/Prentiss/Iron/Folic Ac ( Plus Iron) 1 each PO DAILY ALEXANDRA Last Admin: 07/10/19 09:04 Dose: Not Given Miki Banerjee (Tucks) 1 pad TOP ASDIRECTED PRN PRN Reason: Perineal Comfort Measure Discontinued Medications Ephedrine Sulfate (Ephedrine Sulfate) 5 mg IVPUSH ASDIRECTED PRN PRN Reason: Hypotension Fentanyl (Sublimaze) 100 mcg EPIDUR Q3H PRN PRN Reason: Pain Fentanyl/Bupivacaine HCl (Fentanyl/Bupivacaine/Ns 2 Mcg-0.125% 100 Ml) 100 ml EPIDUR ASDIRECTED ALEXANDRA Lactated Ringer's (Ringers, Lactated) 1,000 mls @ 100 mls/hr IV ASDIRECTED ALEXANDRA Last Admin: 07/08/19 14:25 Dose: 100 mls/hr Oxytocin/Lactated Ringer's (Pitocin In Lr 10 Units/1,000 Ml) 10 unit in 1,000 mls @ 500 mls/hr IV .CONTINUOUS ALEXANDRA Phenylephrine HCl 1 mg/ Sodium (Chloride) 10.1 mls @ 1 mls/sec IV TITRATE ALEXANDRA; Protocol Oxytocin/Lactated Ringer's (Pitocin In Lr 10 Units/1,000 Ml) 10 unit in 1,000 mls @ 12 mls/hr IV TITRATE ALEXANDRA; Protocol Last Titration: 07/08/19 18:30 Dose: 8 munits/min, 48 mls/hr Ondansetron HCl (Zofran) 4 mg IVPUSH Q4H PRN PRN Reason: Nausea/Vomiting Ondansetron HCl (Zofran) 4 mg IVPUSH ONETIME PRN PRN Reason: Nausea/Vomiting Sodium Chloride (Saline Flush) 10 ml FLUSH ASDIRECTED PRN PRN Reason: Keep Vein Open
== END 2019-07-10 10:59 | disposition home or self-care (01) | DRG 807 ==
LOC: JD.OBCHECK 08:38 → JD.OB 08:39 → JD.OBCHECK 09:29 → OBSVTOIN 20:12 → JD.OB 20:13
PROVIDERS: ADMIT Obstetrics & Gynecology; ATTEND Obstetrics & Gynecology
PROC: 10E0XZZ Delivery of Products of Conception, External Approach (ICD-10-PCS; principal; 2019-07-08)
PROC: 10907ZC Drainage of Amniotic Fluid, Therapeutic from Products of Conception, Via Natural or Artificial Opening (ICD-10-PCS; 2019-07-08)
PROC: 3E0R3BZ Introduction of Anesthetic Agent into Spinal Canal, Percutaneous Approach (ICD-10-PCS; 2019-07-08)
DX: O34.219 Maternal care for unspecified type scar from previous cesarean delivery (principal); Z37.0 Single live birth; Z3A.39 39 weeks gestation of pregnancy
CPT/HCPCS: 36415; 51701; 59025; 59409; 85025; 86592; A9270-GY; J2210; J2590; J7120

== ENCOUNTER 2021-04-15 20:41 | Emergency (ER) | payer SELFPAY ==
[2021-04-15 20:53] VITALS: BP 133/89; PULSE 67
[2021-04-15] MEDS ORDERED: Alum Hydrox/Mag Hydrox/Simeth 30 ML, Lidocaine 2% 15 ML PO ONE ×2 (21:02)
--- NOTE | 2021-04-15 21:08 | EDM.PDOC ---
ED [facility] GENERAL MEDICAL PROBLEM - General Chief Complaint: Abdominal Pain Stated Complaint: ABDOMINAL PAIN Time Seen by Provider: 04/15/21 21:06 Source of Information: Reports: Patient History Limitations: Reports: No Limitations - History of Present Illness INITIAL COMMENTS - FREE TEXT/NARRATIVE: Patient 30-year-old female with no significant past medical history presenting with a chief complaint of abdominal pain. Patient reports intermittent abdominal pain for the past 5 months. Patient reports pain is primarily in the mid epigastric region with radiation to the left upper quadrant. Patient has not noticed any significant exacerbating or palliative factors. Does not seem to occur with meals. She does not have any fevers, nausea, vomiting, diarrhea. She has not used any medications before. Patient states she started having pain again past couple days and feels it is getting more intense. Therefore, she came into the emergency room. Abdomen Pain Score (Numeric/FACES): 6 - Related Data Allergies Allergy/AdvReac Type Severity Reaction Status Date / Time No Known Allergies Allergy Verified 07/08/19 18:36 Home Meds: Home Meds cephALEXin [Keflex] 500 mg PO Q8H #21 cap 04/15/21 [Rx] Past Medical History - Past Health History Medical/Surgical History: Denies Medical/Surgical History [employer] History: Reports: , Spontaneous - Past Surgical History GI Surgical History: Reports: Appendectomy, Cholecystectomy Female Surgical History: Reports: Section Social & Family History - Family History Family Medical History: No Pertinent Family History - Tobacco Use Tobacco Use Status *Q: Never Tobacco User - Caffeine Use Caffeine Use: Reports: Coffee - Recreational Drug Use Recreational Drug Use: No - Living Situation & Occupation Living situation: Reports: , with Spouse, with Family (2 kids) Occupation: Unemployed ED ROS GENERAL - Review of Systems Review Of Systems: See Below Free Text/Narrative/Comment: In addition to that documented in the HPI above, the additional ROS was obtained: Constitutional: Denies fevers or chills Eyes: Denies vision changes ENMT: Denies sore throat CV: Denies chest pain Resp: Denies SOB GI: Denies vomiting or diarrhea : Denies painful urination MSK: Denies recent trauma Skin: Denies new rashes Neuro: Denies new numbness or tingling or weakness Endocrine: Denies unexpected weight loss Heme: Denies bleeding disorders ED EXAM, GI/ABD - Physical Exam Exam: See Below Text/Narrative:: I have reviewed the triage vital signs Const: Well nourished, well developed, appears stated age Eyes: Pupils Equal and reactive to light bilaterally, no conjunctival injection HENT: No signs of trauma or swelling, Neck supple without meningismus CV: Regular Rate Rhythm, Warm, well-perfused extremities RESP: Unlabored respiratory effort GI: soft, non-tender, non-distended, no masses MSK: No gross deformities appreciated Skin: Warm, dry. No rashes Neuro: Alert, claims support specialist II-XII grossly intact. Sensation and motor function of extremities grossly intact. Psych: Appropriate mood and affect. Course - Vital Signs Last Recorded V/S: Last Vital Signs Temp 36.2 C 04/15/21 20:52 Pulse 67 04/15/21 20:52 Resp 16 04/15/21 20:52 BP 133/89 04/15/21 20:52 Pulse Ox 98 04/15/21 20:52 - Orders/Labs/Meds Labs: Laboratory Tests 04/15/21 04/15/21 04/15/21 Range/Units 21:10 21:10 21:41 WBC 9.75 (3.98-10.04) K/mm3 RBC 4.80 (3.98-5.22) M/mm3 Hgb 12.9 (11.2-15.7) gm/dl Hct 39.3 (34.1-44.9) % MCV 81.9 D (79.4-94.8) fl MCH 26.9 (25.6-32.2) pg MCHC 32.8 (32.2-35.5) g/dl RDW Std Deviation 40.9 (36.4-46.3) fL Plt Count 411 H D (182-369) K/mm3 MPV 9.5 (9.4-12.3) fl Neut % (Auto) 54.0 (34.0-71.1) % Lymph % (Auto) 36.1 (19.3-51.7) % [place] % (Auto) 6.6 (4.7-12.5) % Eos % (Auto) 2.5 (0.7-5.8) Baso % (Auto) 0.4 (0.1-1.2) % Neut # (Auto) 5.27 (1.56-6.13) K/mm3 Lymph # (Auto) 3.52 (1.18-3.74) K/mm3 [place] # (Auto) 0.64 H (0.24-0.36) K/mm3 Eos # (Auto) 0.24 (0.04-0.36) K/mm3 Baso # (Auto) 0.04 (0.01-0.08) K/mm3 Sodium 142 (136-145) mEq/L Potassium 4.2 (3.5-5.1) mEq/L Chloride 105 (98-107) mEq/L Carbon Dioxide 29 (21-32) mEq/L Anion Gap 12.2 (5-15) BUN 13 (7-18) mg/dL Creatinine 0.6 (0.55-1.02) mg/dL Est Cr Clr Drug Dosing 122.25 mL/min Estimated GFR (MDRD) > 60 (>60) mL/min BUN/Creatinine Ratio 21.7 H (14-18) Glucose 111 H (70-99) mg/dL Calcium 9.1 (8.5-10.1) mg/dL Total Bilirubin 0.2 (0.2-1.0) mg/dL AST 8 L (15-37) U/L ALT 15 (14-59) U/L Alkaline Phosphatase 86 (46-116) U/L Total Protein 6.9 (6.4-8.2) g/dl Albumin 3.5 (3.4-5.0) g/dl Globulin 3.4 gm/dL Albumin/Globulin Ratio 1.0 (1-2) Lipase 102 (73-393) U/L Urine Color Yellow (Yellow) Urine Appearance Slt cloudy H (Clear) Urine pH 7.0 (5.0-8.0) Ur Specific [place] 1.025 (1.005-1.030) Urine Protein Negative (Negative) Urine Glucose (UA) Negative (Negative) Urine Ketones Negative (Negative) Urine Occult Blood 1+ H (Negative) Urine Nitrite Positive H (Negative) Urine Bilirubin Negative (Negative) Urine Urobilinogen 0.2 (0.2-1.0) Ur Leukocyte Esterase 1+ H (Negative) Urine RBC 0-5 (0-5) /hpf Urine WBC 5-10 H (0-5) /hpf Ur Squamous Epith Cells 0-5 (0-5) /hpf Urine Bacteria Many H (FEW) /hpf Urine Mucus Few (FEW) /hpf Urine HCG, Qual (NEGATIVE) 04/15/21 Range/Units 21:41 WBC (3.98-10.04) K/mm3 RBC (3.98-5.22) M/mm3 Hgb (11.2-15.7) gm/dl Hct (34.1-44.9) % MCV (79.4-94.8) fl MCH (25.6-32.2) pg MCHC (32.2-35.5) g/dl RDW Std Deviation (36.4-46.3) fL Plt Count (182-369) K/mm3 MPV (9.4-12.3) fl Neut % (Auto) (34.0-71.1) % Lymph % (Auto) (19.3-51.7) % [place] % (Auto) (4.7-12.5) % Eos % (Auto) (0.7-5.8) Baso % (Auto) (0.1-1.2) % Neut # (Auto) (1.56-6.13) K/mm3 Lymph # (Auto) (1.18-3.74) K/mm3 [place] # (Auto) (0.24-0.36) K/mm3 Eos # (Auto) (0.04-0.36) K/mm3 Baso # (Auto) (0.01-0.08) K/mm3 Sodium (136-145) mEq/L Potassium (3.5-5.1) mEq/L Chloride (98-107) mEq/L Carbon Dioxide (21-32) mEq/L Anion Gap (5-15) BUN (7-18) mg/dL Creatinine (0.55-1.02) mg/dL Est Cr Clr Drug Dosing mL/min Estimated GFR (MDRD) (>60) mL/min BUN/Creatinine Ratio (14-18) Glucose (70-99) mg/dL Calcium (8.5-10.1) mg/dL Total Bilirubin (0.2-1.0) mg/dL AST (15-37) U/L ALT (14-59) U/L Alkaline Phosphatase (46-116) U/L Total Protein (6.4-8.2) g/dl Albumin (3.4-5.0) g/dl Globulin gm/dL Albumin/Globulin Ratio (1-2) Lipase (73-393) U/L Urine Color (Yellow) Urine Appearance (Clear) Urine pH (5.0-8.0) Ur Specific [place] (1.005-1.030) Urine Protein (Negative) Urine Glucose (UA) (Negative) Urine Ketones (Negative) Urine Occult Blood (Negative) Urine Nitrite (Negative) Urine Bilirubin (Negative) Urine Urobilinogen (0.2-1.0) Ur Leukocyte Esterase (Negative) Urine RBC (0-5) /hpf Urine WBC (0-5) /hpf Ur Squamous Epith Cells (0-5) /hpf Urine Bacteria (FEW) /hpf Urine Mucus (FEW) /hpf Urine HCG, Qual Negative (NEGATIVE) Meds: Medications Discontinued Medications Generic Name Dose Route Start Last Admin Trade Name Freq PRN Reason Stop Dose Admin Al Hydroxide/Mg Hydroxide 30 0 ml 04/15/21 21:02 04/15/21 21:29 ml/ Lidocaine HCl 15 ml PO 04/15/21 21:03 45 ml ONETIME ONE Administration Famotidine 40 mg 04/16/21 21:02 Famotidine 40 Mg/5 Ml Bottle PO 04/16/21 21:03 ONETIME ONE Famotidine Confirm 04/15/21 21:26 04/15/21 21:36 Famotidine 20 Mg Tab Administered 04/15/21 21:27 40 mg Dose Administration 20 mg .ROUTE .STK-MED ONE Influenza Virus Vaccine 60 mcg 04/15/21 21:15 04/15/21 21:30 Flu Vacc [id number] 36mos Up/Pf 60 Mcg/0.5 Ml Syringe IM 04/15/21 21:16 60 mcg .ONCE ONE Administration Ketorolac Tromethamine 15 mg 04/15/21 22:08 04/15/21 22:20 Ketorolac 15 Mg/Ml Sdv IM 04/15/21 22:09 15 mg ONETIME ONE Administration Departure - Departure Time of Disposition: 22:05 Disposition: Home, Self-Care 01 Clinical Impression: Abdominal pain, UTI (urinary tract infection) - Discharge Information Prescriptions: cephALEXin [Keflex] 500 mg PO Q8H #21 cap Instructions: Urinary Tract Infection, Adult, [id number], Abdominal Pain, Adult, [id number], Urinary Tract Infection, Adult Referrals: More Jimenez CLINICAL CYTOGENETICS DIRECTOR [Primary Care Provider] - Forms: ED Department Discharge Sepsis Event Note (ED) - Focused Exam Vital Signs: Vital Signs Temp Pulse Resp BP Pulse Ox 04/15/21 20:52 36.2 C 67 16 133/89 98 - Assessment/Plan Assessment:: Patient is a 30-year-old female presenting with abdominal pain x5 months. Her abdominal exam is benign, her vital signs are normal, and she is well-appearing. Broad differential diagnosis considered for this patient include gastritis, bowel obstruction, kidney stone, UTI. Laboratory studies did not demonstrate any significant abnormalities other than evidence of urinary tract infection. Patient will be initiated on antibiotics. Instructed to follow-up with primary care for further evaluation of abdominal pain should this not resolve after antibiotic treatment is complete. Return precautions given usual. Patient agrees to plan.
[2021-04-15] MEDS ORDERED: FLU Vacc QS2021-22 36MOS UP/PF 60 MCG/0.5 ML Syringe IM ONE (21:15)
[2021-04-15] MEDS ORDERED: Famotidine 20 MG Tab ONE (21:26)
[2021-04-15] MEDS ORDERED: Ketorolac 15 MG/ML SDV IM ONE (22:08)
[2021-04-16] MEDS ORDERED: Famotidine 40 MG/5 ML Bottle PO ONE (21:02)
== END 2021-04-15 22:20 | disposition home or self-care (01) ==
LOC: JD.ED 20:41
DX: N39.0 Urinary tract infection, site not specified (principal); Z23 Encounter for immunization
CPT/HCPCS: 36415; 80053; 81001; 81025; 83690; 85025; 90471; 90686; 96372; 99284; A9270; J1885; G0008

== ENCOUNTER 2024-01-21 00:39 | Inpatient (IN) | payer MEDICAID ==
[~2024-01-21 00:39] MED LIST: Bupivacaine 0.25% 10 ML SDV ONE
[2024-01-21] MEDS ORDERED: Sodium Chloride 0.9% 10 ML Syringe FLUSH PRN (08:22)
[2024-01-21] MEDS ORDERED: Lidocaine 1% 50 ML MDV INJECT PRN (08:22)
[2024-01-21] MEDS ORDERED: Acetaminophen 325 MG Tab PO PRN (08:22)
[2024-01-21] MEDS ORDERED: Oxytocin/0.9 % Sodium Chloride 30 UNIT/500 ML BAG IV SCH (08:30)
[2024-01-21 08:55] LABS: BASOPHILS ABSOLUTE AUTO 0.1 K/mm3 (0.0-0.2); BASOPHILS PERCENT AUTO 0.5 % (0.0-1.0); EOSINOPHILS ABSOLUTE AUTO 0.1 K/mm3 (0.0-0.4); EOSINOPHILS PERCENT AUTO 0.8 % (0.0-6.0); HEMATOCRIT 34.2 % (37.0-47.0); HEMOGLOBIN 10.8 gm/dl (12.0-16.0); IMMATURE GRAN ABSOLUTE AUTO 0.11 K/mm3 (0.00-0.05); IMMATURE GRAN PERCENT AUTO 1.1 % (0.0-0.4); LYMPHOCYTES ABSOLUTE AUTO 2.4 K/mm3 (1.0-4.8); LYMPHOCYTES PERCENT AUTO 23.9 % (24.0-44.0); MEAN CORPUSCULAR HEMOGLOBIN 24.8 pg (28.0-32.0); MEAN CORPUSCULAR HGB CONC 31.6 g/dl (32.0-36.0); MEAN PLATELET VOLUME 9.6 fl (9.4-12.3); MONOCYTES ABSOLUTE AUTO 0.5 K/mm3 (0.0-0.8); NEUTROPHILS ABSOLUTE AUTO 6.9 K/mm3 (1.8-7.7); NEUTROPHILS PERCENT AUTO 68.7 % (41.0-71.0); PLATELET COUNT,PLT 295 K/mm3 (150-400); RED BLOOD CELL COUNT 4.36 M/mm3 (4.10-5.30); WHITE BLOOD CELL COUNT,WBC 10.02 K/mm3 (3.9-11.3)
[2024-01-21 09:02] LABS: MEAN CORPUSCULAR VOLUME 78.4 fl (83.0-99.0)
[2024-01-21] MEDS: Sodium Chloride 0.9% 10 ML Syringe FLUSH SCH (10:18)
[2024-01-21] MEDS: Lactated Ringers 1,000 ML IV SCH (10:21)
[2024-01-21] MEDS: Oxytocin/0.9 % Sodium Chloride 30 UNIT/500 ML BAG IV SCH (10:21)
[2024-01-21] MEDS ORDERED: ePHEDrine 50 MG/ML SDV IVPUSH PRN (17:17)
[2024-01-21] MEDS ORDERED: diphenhydrAMINE 50 MG/ML SDV IVPUSH PRN (17:17)
[2024-01-21] MEDS: fentaNYL 100 MCG/2 ML SDV EPIDUR PRN (17:30)
[2024-01-21] MEDS: Bupivacaine/fentaNYL/NS 100 ML Bag EPIDUR PRN (17:30)
[2024-01-22] MEDS ORDERED: Hydrocortisone Acetate 25 MG Supp RECTAL PRN (02:29)
[2024-01-22] MEDS ORDERED: Magnesium Hydroxide 400 MG/5 ML Susp 30 ML Cup PO PRN (02:29)
[2024-01-22] MEDS ORDERED: Oxytocin/Lactated Ringers 30 UNIT/500 ML BAG IV SCH (02:29)
[2024-01-22] MEDS ORDERED: Acetaminophen 325 MG Tab PO PRN (02:29)
[2024-01-22] MEDS ORDERED: Docusate Sodium 100 MG Cap PO PRN (02:29)
[2024-01-22] MEDS: Ibuprofen 600 MG Tab PO SCH (03:05)
[2024-01-22] MEDS: Witch Hazel Medicated Pads 40/Jar TOP PRN (03:32)
[2024-01-22] MEDS: Benzocaine/Menthol 20%-0.5% Spray 78 GM Cannister TOP PRN (03:32)
[2024-01-22] MEDS: Prenatal Multivitamin with Calcium/Folic Acid/Iron Tab PO SCH (08:43)
[2024-01-22 11:56] LABS: HEMATOCRIT 27.4 % (37.0-47.0); MEAN CORPUSCULAR HEMOGLOBIN 24.7 pg (28.0-32.0); MEAN CORPUSCULAR HGB CONC 31.8 g/dl (32.0-36.0); MEAN CORPUSCULAR VOLUME 77.8 fl (83.0-99.0); PLATELET COUNT,PLT 273 K/mm3 (150-400); RED BLOOD CELL COUNT 3.52 M/mm3 (4.10-5.30); WHITE BLOOD CELL COUNT,WBC 16.01 K/mm3 (3.9-11.3)
[2024-01-22 11:58] LABS: HEMOGLOBIN 8.7 gm/dl (12.0-16.0)
[2024-01-23 09:52] VITALS: BP 111/61; PULSE 81
== END 2024-01-23 11:02 | disposition home or self-care (01) | DRG 807 ==
LOC: JD.OB 00:39 → INTOOBSV 06:52 → JD.OB 06:52 → OBSVTOIN 01-22 00:39 → JD.OB 01-22 00:40
PROVIDERS: ADMIT Obstetrics & Gynecology; ATTEND Obstetrics & Gynecology
PROC: 10E0XZZ Delivery of Products of Conception, External Approach (ICD-10-PCS; principal; 2024-01-22)
PROC: 3E0R3BZ Introduction of Anesthetic Agent into Spinal Canal, Percutaneous Approach (ICD-10-PCS; 2024-01-22)
PROC: 00HU33Z Insertion of Infusion Device into Spinal Canal, Percutaneous Approach (ICD-10-PCS; 2024-01-22)
PROC: 10H07YZ Insertion of Other Device into Products of Conception, Via Natural or Artificial Opening (ICD-10-PCS; 2024-01-22)
DX: O48.0 Post-term pregnancy (principal); Z3A.40 40 weeks gestation of pregnancy; Z37.0 Single live birth; O34.211 Maternal care for low transverse scar from previous cesarean delivery; O69.81X0 Labor and delivery complicated by cord around neck, without compression, not applicable or unspecified; O70.0 First degree perineal laceration during delivery
CPT/HCPCS: 36415; 51701; 51702; 59025; 59409; 85025; 85027; 86592; 86850; 86900; 86901; A9270-GY; C1758; J0665; J3010; J3490; J7120; J7999